=== PATIENT | male | born 1960 | race Caucasian/White ===

== ENCOUNTER → 2022-03-17 | Outpatient (CLI) | payer BC ==
[~2022-03-17] MED LIST: ISOVUE-300 61% 50ML VIAL As Ordered ONE; LIDOCAINE 1% MDV 20ML VIAL As Ordered ONE; methylPREDNISolone 80MG/ML SUSP 1ML VIAL (J1040) As Ordered ONE
== END ==
LOC: M RADPRO 08:32
PROVIDERS: ATTEND Orthopaedic Surgery
DX: M16.12 Unilateral primary osteoarthritis, left hip (principal); M25.552 Pain in left hip
CPT/HCPCS: 20610; 77002; J1040; Q9967

== ENCOUNTER → 2022-07-06 | Outpatient (CLI) | payer BC | LOC: M RAD 12:16 | PROVIDERS: ATTEND Orthopaedic Surgery | DX: M16.12 Unilateral primary osteoarthritis, left hip (principal) | CPT/HCPCS: 20610; 76000; J1040; Q9967 ==